=== PATIENT | female | born 2000 | race Caucasian/White ===

== ENCOUNTER 2020-06-08 17:11 | Emergency (ER) | payer OTHER ==
[~2020-06-08] VITALS: Ht 172.7 cm; Wt 55.8 kg
[2020-06-08 17:18] VITALS: BP 126/82
[2020-06-08] MEDS ORDERED: PROCHLORPERAZINE 5 MG/ML, 2ML IVPush ONE (18:30)
[2020-06-08] MEDS ORDERED: SODIUM CHLORIDE 0.9% 1,000ML IVBOLUS ONE (18:30)
[2020-06-08 18:46] LABS: BASOPHILS % (AUTO) 1 % (0-1); EOSINOPHILS % (AUTO) 1 % (1-7); LYMPHOCYTES % (AUTO) 33 % (22-44); MEAN CORPUSCULAR HGB CONC 33.7 g/dL (32.4-35.8); MEAN PLATELET VOLUME 8.6 fL (7.4-10.4); MONOCYTES % (AUTO) 9 % (2-9); NEUTROPHILS % (AUTO) 56 % (42-75); PLATELET COUNT 292 x10^3/uL (130-400); RED BLOOD COUNT 4.25 x10^6/uL (3.82-5.3); RED CELL DISTRIBUTION WIDTH 12.9 % (9.6-15.2)
[2020-06-08 18:47] LABS: MD NO
[2020-06-08 18:54] LABS: ANION GAP 4 mmol/L (5-15); CALCIUM 8.7 mg/dL (8.5-10.1); CHLORIDE 107 mmol/L (98-107); CREATININE 0.73 mg/dL (0.55-1.02)
[2020-06-08] MEDS ORDERED: PROCHLORPERAZINE 5 MG/ML, 2ML ONE (19:18)
--- NOTE | 2020-06-08 19:24 | NUR ---
PT AMBULATED TO ROOM, IN NO ACUTE DISTRESS. C/O MILD HEAD ACHE AT THIS TIME WITH NAUSEA. PT ON O2 AND BP MONITOR, AND ORDERS RECEIVED. PIV STARTED TO LEFT HAND X1 ATTEMPT WITH 18G CATH AND FLUSHED EASY, NO REDNESS OR SWELLING. IVF 1000ML STARTED TO RUN OVER 1 HOUR. AND MEDS GIVEN.
--- NOTE | 2020-06-08 19:41 | NUR ---
PT NOW STATING THAT SHE FEELS NAUSEOUS AND THINKS IT'S THE PIV THAT'S DOING IT. CHECKED WITH MD AND SHE AGREED. PER PT REQUEST, PIV D/C'D AND ONLY 200ML OF IVF INFUSED. MD AWARE, AND PT IN NO ACUTE DISTRESS, SITTING IN CHAIR AT THE MOMENT.
[2020-06-08] MEDS ORDERED: NAPROXEN 500 MG TABLET ONE (19:57)
[2020-06-08] MEDS ORDERED: NAPROXEN 500 MG TABLET PO ONE (20:00)
== END 2020-06-08 20:13 | disposition home or self-care (01) ==
LOC: ED 20:05
DX: R51.9 Headache, unspecified (principal); R11.0 Nausea; R50.9 Fever, unspecified; R94.31 Abnormal electrocardiogram [ECG] [EKG]
CPT/HCPCS: 36415; 80048; 82040; 85025; 93005; 96361; 96374; 99284; J0780; J7030